=== PATIENT | female | born 1945 | race Caucasian/White ===

== ENCOUNTER 2018-03-16 12:25 | Outpatient (CLI) | payer MEDICARE, BC | END 2018-03-16 12:26 | disposition home or self-care (01) | LOC: BICMAMMO 12:25 | PROVIDERS: ATTEND Obstetrics & Gynecology | DX: Z12.31 Encounter for screening mammogram for malignant neoplasm of breast (principal); Z80.3 Family history of malignant neoplasm of breast | CPT/HCPCS: 77063; 77067 ==

== ENCOUNTER 2024-10-04 12:38 | Inpatient (IN) | payer MEDICARE ==
[2024-10-04] MEDS ORDERED: Ondansetron PF 4 MG/2 ML Vial IVP PRN (14:01)
[2024-10-04] MEDS ORDERED: Morphine 2 MG/ML VIAL SLOW IVP PRN (14:01)
[2024-10-04] MEDS ORDERED: Ipratropium/Albuterol 3 ML NEB NEB PRN (14:01)
[2024-10-04] MEDS ORDERED: traMADol HCl 50 MG TAB PO PRN (14:03)
[2024-10-04] MEDS: Acetaminophen 325 MG TAB PO SCH (14:37)
[2024-10-04] MEDS ORDERED: hydrALAZINE 20 MG/ML VIAL SLOW IVP PRN (14:37)
[2024-10-04] MEDS: Sodium Chloride 0.9% 1,000 ML IV SCH (14:57)
[2024-10-04 15:28] VITALS: BMI 17.6
[2024-10-04] MEDS ORDERED: CEFAZOLIN 2 GM in Sodium Chloride 0.9% 100 ML IVPB SCH (15:30)
[2024-10-04] MEDS: traMADol HCl 50 MG TAB PO SCH (18:41)
[2024-10-04] MEDS: Latanoprost 0.005% Ophth Soln 2.5 ml Bottle EA EYE SCH (20:22)
[2024-10-04] MEDS: Famotidine/PF 20 mg/2ml Vial SLOW IVP SCH (20:23)
[2024-10-05 06:05] LABS: #Basophils 0.05 10x3/uL (0.0-0.2); %Basophils 0.7 % (0.0-1.0); %Eosinophils 0.6 % (0.0-10.0); %Lymphocytes 30.5 % (21.0-51.0); %Monocytes 11.3 % (0.0-10.0); %Neutrophils 56.8 % (42.0-75.0); Hematocrit 27.9 % (36.0-47.0); Hemoglobin 9.4 g/dL (12.0-16.0); Mean Corpuscular HGB CONC 33.7 g/dL (32.0-36.0); Mean Corpuscular Hemoglobin 33.5 pg (27.0-31.0); Mean Corpuscular Volume 99.3 fL (78.0-98.0); Mean Platelet Volume 9.7 fL (7.4-10.4); Platelet Count 154 10x3/uL (130-400); RBC Distribution Width 12.3 % (11.5-14.5); Red Blood Cell (RBC) Count 2.81 mill/uL (4.20-5.40)
[2024-10-05] MEDS: Levothyroxine Sodium 75 MCG TAB PO SCH (06:06)
[2024-10-05 06:18] LABS: INR-International Normal Ratio 1.3; PTT 32.7 sec (22.9-36.1); Prothrombin Time 15.9 sec (12.0-14.7)
[2024-10-05 06:22] LABS: Anion Gap 10 mmol/L (10-20); BUN (Urea Nitrogen) 12 mg/dL (9.8-20.1); Calc. Creatinine Clearance 52 mL/min (70-130); Calcium 7.9 mg/dL (7.8-10.44); Carbon Dioxide 22 mmol/L (23-31); Chloride 111 mmol/L (98-107); Estimated GFR 89; Glucose 101 mg/dL (83-110); Potassium 3.7 mmol/L (3.5-5.1); Sodium 139 mmol/L (136-145)
[2024-10-05 06:41] LABS: Free T4 (Free Thyroxine) 0.91 ng/dL (0.70-1.48); Thyroid Stimulating Hormone 3.4324 uIU/mL (0.35-4.94)
[2024-10-05] MEDS: Sertraline 25 MG TAB PO SCH (09:11)
[2024-10-05] MEDS: Atenolol 25 MG TAB PO SCH (09:13)
[2024-10-05] MEDS: FLU (Fluad Triv) TS24-25 (65UP)/MF59C/PF 45 MCG/0.5 ML Syringe IM ONE (10:09)
[2024-10-05] MEDS ORDERED: PROPOFOL 20 ML ONE (14:05)
[2024-10-05] MEDS ORDERED: fentaNYL PF 100 MCG/2 ML SYRINGE ONE (14:05)
[2024-10-05] MEDS ORDERED: Lidocaine 1% PF 5 ML VIAL ONE (14:05)
[2024-10-05] MEDS ORDERED: PHENYLEPHRINE-NS 100 MCG/ML 10 ML SYRINGE ONE (14:31)
[2024-10-05] MEDS ORDERED: Dexamethasone 20 MG/5 ML VIAL ONE (14:39)
[2024-10-05] MEDS ORDERED: Ondansetron PF 4 MG/2 ML Vial ONE (14:39)
[2024-10-05] MEDS ORDERED: fentaNYL 50 mcg/mL 1 mL Vial ONE (15:22)
[2024-10-05] MEDS: Non-Formulary Item 1 EACH (Acetaminophen [Tylenol Arthritis] 650 MG Tablet.Er) PO SCH (19:23)
[2024-10-05] MEDS: CEFAZOLIN 2 GM in Sodium Chloride 0.9% 100 ML IVPB SCH (22:02)
[2024-10-06 05:19] LABS: #Basophils 0.03 10x3/uL (0.0-0.2); #Eosinophils Less than 0.03 10x3/uL (0.0-0.7); %Basophils 0.4 % (0.0-1.0); %Monocytes 6.3 % (0.0-10.0); %Neutrophils 78.9 % (42.0-75.0); Hematocrit 25.8 % (36.0-47.0); Hemoglobin 8.7 g/dL (12.0-16.0); Mean Corpuscular HGB CONC 33.7 g/dL (32.0-36.0); Mean Corpuscular Hemoglobin 33.6 pg (27.0-31.0); Mean Corpuscular Volume 99.6 fL (78.0-98.0); Platelet Count 131 10x3/uL (130-400); RBC Distribution Width 12.5 % (11.5-14.5); Red Blood Cell (RBC) Count 2.59 mill/uL (4.20-5.40)
[2024-10-06 05:22] LABS: Anion Gap 9 mmol/L (10-20); BUN (Urea Nitrogen) 13 mg/dL (9.8-20.1); Calc. Creatinine Clearance 45 mL/min (70-130); Calcium 7.7 mg/dL (7.8-10.44); Carbon Dioxide 20 mmol/L (23-31); Chloride 111 mmol/L (98-107); Estimated GFR 80; Glucose 120 mg/dL (83-110); Sodium 136 mmol/L (136-145)
[2024-10-06] MEDS: Enoxaparin 40 MG (0.4 mL) SYRINGE SC SCH (08:35)
[2024-10-06 11:14] VITALS: BMI 17.6
[2024-10-06] MEDS: ALPRAZolam 0.5 MG TAB PO PRN (12:54)
[2024-10-07] MEDS: Ascorbic Acid 500 mg Chewable Tablet PO SCH (08:06)
[2024-10-07] MEDS: Docusate 100 MG CAP PO SCH (08:06)
[2024-10-07] MEDS: Ferrous Sulfate 325 MG TAB PO SCH (08:07)
[2024-10-07 08:35] LABS: #Basophils 0.05 10x3/uL (0.0-0.2); %Basophils 0.7 % (0.0-1.0); %Eosinophils 1.6 % (0.0-10.0); %Lymphocytes 23.1 % (21.0-51.0); %Monocytes 10.7 % (0.0-10.0); %Neutrophils 63.5 % (42.0-75.0); Hematocrit 27.1 % (36.0-47.0); Hemoglobin 9.2 g/dL (12.0-16.0); Mean Corpuscular HGB CONC 33.9 g/dL (32.0-36.0); Mean Corpuscular Hemoglobin 33.3 pg (27.0-31.0); Mean Corpuscular Volume 98.2 fL (78.0-98.0); Mean Platelet Volume 10.3 fL (7.4-10.4); Platelet Count 143 10x3/uL (130-400); RBC Distribution Width 12.8 % (11.5-14.5); Red Blood Cell (RBC) Count 2.76 mill/uL (4.20-5.40)
[2024-10-07] MEDS: Atenolol 25 MG TAB PO SCH (10:06)
[2024-10-07] MEDS ORDERED: Aspirin 325 MG TAB PO PRN (11:42)
[2024-10-10] MEDS: Atenolol 25 MG TAB PO SCH (09:43)
[2024-10-10 12:37] VITALS: BP 139/75; TEMP 98.1
== END 2024-10-10 17:40 | disposition home health service (06) | DRG 494 ==
LOC: SURG B 13:37
PROVIDERS: ADMIT Surgery; ATTEND Surgery
PROC: 0QSG04Z Reposition Right Tibia with Internal Fixation Device, Open Approach (ICD-10-PCS; principal; 2024-10-05)
DX: S82.144A Nondisplaced bicondylar fracture of right tibia, initial encounter for closed fracture (principal); E03.9 Hypothyroidism, unspecified; F41.9 Anxiety disorder, unspecified; F32.A Depression, unspecified; Y93.89 Activity, other specified; Z79.890 Hormone replacement therapy; Z79.899 Other long term (current) drug therapy; Y92.89 Other specified places as the place of occurrence of the external cause; I10 Essential (primary) hypertension; W18.30XA Fall on same level, unspecified, initial encounter
CPT/HCPCS: 36415; 80048; 84439; 84443; 85025; 85610; 85730; 86850; 86900; 86901; J1100; J1650; J2405; J2704; J3010; J3490; J7030